=== PATIENT | female | born 1990 | race Caucasian/White ===

== ENCOUNTER 2021-03-12 11:57 | Emergency (ER) | payer OTHER ==
[2021-03-12 12:36] VITALS: BP 104/74; PULSE 87; TEMP 97.4; BMI 27.0
[2021-03-12 13:33] LABS: EPI CELLS 29 /uL (0-25.1); HYALINE CASTS 1 /uL (0-3.1); URINE APPEARANCE CLEAR; URINE BACTERIA 90 /uL (0-1359); URINE BILIRUBIN NEGATIVE (NEGATIVE); URINE COLOR YELLOW; URINE GLUCOSE (UA) NEGATIVE (NEGATIVE); URINE KETONE NEGATIVE (NEGATIVE); URINE LEUK ESTERASE 2+ (NEGATIVE); URINE NITRITE NEGATIVE (NEGATIVE); URINE PROTEIN NEGATIVE (NEGATIVE); URINE RBC 11 /uL (0-23.9); URINE WBC 23 /uL (0-25.8)
[2021-03-12 13:42] LABS: HCG,QUALITATIVE URINE Positive
[2021-03-12] MEDS ORDERED: CEPHALEXIN MONOHYDRATE 500 MG CAPSULE (UD) PO ONE (13:45)
[2021-03-12] MEDS ORDERED: CEPHALEXIN MONOHYDRATE 500 MG CAPSULE (UD) ONE (13:46)
== END 2021-03-12 13:51 | disposition home or self-care (01) ==
LOC: JERFT 11:57
DX: N30.00 Acute cystitis without hematuria (principal)
CPT/HCPCS: 81003; 84703; 87086; 99283-25

== ENCOUNTER 2021-09-09 09:45 | Inpatient (IN) | payer OTHER ==
[2021-09-09] MEDS ORDERED: DINOPROSTONE 10 MG VAGINAL SUPPOSITORY VG ONE (11:30)
[2021-09-09 11:39] VITALS: BMI 35.6
[2021-09-09] MEDS ORDERED: ELECTROLYTE-148 SOLN 500 ML IV ONE (12:15)
[2021-09-09] MEDS: ELECTROLYTE-148 SOLN 1,000 ML IV SCH ×2 (13:58→21:30)
[2021-09-10] MEDS ORDERED: CITRIC ACID/SODIUM CITRATE 30 ML UNIT-DOSE CUP PO ONE (01:05)
[2021-09-10] MEDS ORDERED: IBUPROFEN 800 MG/8 ML IJ IVPB PRN (02:58)
[2021-09-10] MEDS ORDERED: METHYLERGONOVINE MALEATE 0.2 MG/1 ML AMP IM PRN (02:58)
[2021-09-10] MEDS ORDERED: ACETAMINOPHEN 325 MG TABLET (FP) PO PRN ×2 (02:58→03:23)
[2021-09-10] MEDS ORDERED: WITCH HAZEL 50% (TUCKS) 40 PAD/JAR PAD TP PRN (02:58)
[2021-09-10] MEDS ORDERED: IBUPROFEN 600 MG TABLET (FP) PO PRN (03:23)
[2021-09-10] MEDS ORDERED: ONDANSETRON 4 MG/2 ML VIAL IVPUSH PRN (03:23)
[2021-09-10] MEDS ORDERED: morphine SULFATE/PF 1 MG/2 ML (2cc Syringe - QUVA) SPIN ONE (03:23)
[2021-09-10] MEDS: OXYTOCIN 20 UNITS in 0.9% NS 20 UNIT/1,000 ML INFUS.BAG IV SCH ×2 (08:25→16:15)
[2021-09-10] MEDS: FERROUS SO4 325 MG TABLET (FP) PO SCH ×2 (10:57→22:00)
[2021-09-10] MEDS: PRENATAL VITAMINS W/ FOLIC ACID TABLET (FP) PO SCH (10:58)
[2021-09-10] MEDS: IBUPROFEN 600 MG TABLET (FP) PO PRN (10:59)
[2021-09-10] MEDS: ELECTROLYTE-148 SOLN 1,000 ML IV SCH (19:58)
[2021-09-10] MEDS: SIMETHICONE 80 MG TAB.CHEW (FP) PO PRN (20:09)
[2021-09-10] MEDS: oxyCODONE HCL 5 MG TABLET PO PRN (20:09)
[2021-09-11] MEDS: IBUPROFEN 600 MG TABLET (FP) PO PRN ×3 (02:25→14:35)
[2021-09-11] MEDS: SIMETHICONE 80 MG TAB.CHEW (FP) PO PRN ×4 (02:25→21:15)
[2021-09-11] MEDS ORDERED: BISACODYL 10 MG SUPP.RECT RC PRN (02:58)
[2021-09-11] MEDS: oxyCODONE HCL 5 MG TABLET PO PRN ×2 (05:55→21:15)
[2021-09-11 07:40] LABS: BASO % 0.3 % (0-2.0); EOS % 0.3 % (0-4.5); HEMATOCRIT 31.2 % (32.4-45.2); HEMOGLOBIN 10.6 GM/dL (10.7-15.3); LYMPH % 13.3 % (8-40); MCH 31.7 pg (25.7-33.7); MCHC 34.1 g/dl (32.0-36.0); MEAN CELL VOLUME 92.7 fl (80-96); MEAN PLT VOLUME 7.8 fl (7.5-11.1); MONO % 5.9 % (3.8-10.2); NEUT % 80.2 % (42.8-82.8); PLATELET COUNT 343 10^3/uL (134-434); RBC 3.36 M/mm3 (3.60-5.2); RDW 13.7 % (11.6-15.6); WHITE BLOOD COUNT 14.8 K/mm3 (4.0-10.0)
[2021-09-11] MEDS: FERROUS SO4 325 MG TABLET (FP) PO SCH ×2 (09:36→21:15)
[2021-09-11] MEDS: PRENATAL VITAMINS W/ FOLIC ACID TABLET (FP) PO SCH (09:36)
[2021-09-12] MEDS: SIMETHICONE 80 MG TAB.CHEW (FP) PO PRN ×3 (01:55→21:12)
[2021-09-12] MEDS: oxyCODONE HCL 5 MG TABLET PO PRN ×4 (01:55→21:12)
[2021-09-12] MEDS: IBUPROFEN 600 MG TABLET (FP) PO PRN ×2 (07:53→18:20)
[2021-09-12] MEDS: PRENATAL VITAMINS W/ FOLIC ACID TABLET (FP) PO SCH (09:37)
[2021-09-12] MEDS: FERROUS SO4 325 MG TABLET (FP) PO SCH ×2 (09:37→21:12)
[2021-09-13] MEDS: SIMETHICONE 80 MG TAB.CHEW (FP) PO PRN ×2 (02:09→05:20)
[2021-09-13] MEDS: oxyCODONE HCL 5 MG TABLET PO PRN (02:09)
[2021-09-13] MEDS: IBUPROFEN 600 MG TABLET (FP) PO PRN (05:21)
[2021-09-13 08:12] LABS: BASO % 0.8 % (0-2.0); EOS % 1.7 % (0-4.5); HEMOGLOBIN 11.6 GM/dL (10.7-15.3); LYMPH % 23.7 % (8-40); MCH 31.1 pg (25.7-33.7); MCHC 33.3 g/dl (32.0-36.0); MEAN CELL VOLUME 93.6 fl (80-96); MONO % 7.2 % (3.8-10.2); NEUT % 66.6 % (42.8-82.8); PLATELET COUNT 438 10^3/uL (134-434); RBC 3.74 M/mm3 (3.60-5.2); RDW 13.5 % (11.6-15.6)
[2021-09-13 09:23] VITALS: BP 112/66; PULSE 73; TEMP 97.9
[2021-09-13] MEDS: FERROUS SO4 325 MG TABLET (FP) PO SCH (09:36)
[2021-09-13] MEDS: PRENATAL VITAMINS W/ FOLIC ACID TABLET (FP) PO SCH (09:36)
== END 2021-09-13 15:00 | disposition home or self-care (01) | DRG 540 ==
LOC: JLDR 09:45 → J3W 09-10 04:44
PROVIDERS: ADMIT Obstetrics & Gynecology; ATTEND Obstetrics & Gynecology
PROC: 3E0P7VZ Introduction of Hormone into Female Reproductive, Via Natural or Artificial Opening (ICD-10-PCS; 2021-09-09)
PROC: 10D00Z1 Extraction of Products of Conception, Low, Open Approach (ICD-10-PCS; principal; 2021-09-10)
PROC: 10907ZC Drainage of Amniotic Fluid, Therapeutic from Products of Conception, Via Natural or Artificial Opening (ICD-10-PCS; 2021-09-10)
DX: O36.63X0 Maternal care for excessive fetal growth, third trimester, not applicable or unspecified (principal); O69.81X0 Labor and delivery complicated by cord around neck, without compression, not applicable or unspecified; Z3A.40 40 weeks gestation of pregnancy; Z37.0 Single live birth
CPT/HCPCS: 36415; 80053; 85025; 86850; 86900; 86901; 88307-TC; C9803-CS; U0003; U0005